=== PATIENT | female | born 1995 | race Caucasian/White ===

== ENCOUNTER 2021-03-04 15:27 | Emergency (ER) | payer OTHER ==
[2021-03-04 16:02] LABS: HEMOGLOBIN 11.3 gm/dl (12.3-15.3); RED BLOOD COUNT 4.72 M/UL (4.00-5.10); WHITE BLOOD COUNT 8.3 K/UL (4.5-11.0)
[2021-03-04 16:18] LABS: BUN/CREATININE RATIO 16 (0-10)
[2021-03-04] MEDS ORDERED: BUSPIRONE HCL5 MG PO (19:00)
== END 2021-03-04 19:28 | disposition home or self-care (01) ==
LOC: ER1 15:27
PROVIDERS: Physician Assistant
DX: F41.9 Anxiety disorder, unspecified (principal); R00.2 Palpitations; R07.89 Other chest pain
CPT/HCPCS: 71045; 80048; 83735; 84439; 84443; 85025; 93005; 99284